=== PATIENT | female | born 1945 | race Caucasian/White ===

== ENCOUNTER → 2016-06-13 | Outpatient (CLI) | payer MEDICARE, OTHER ==
[~2016-06-13] MED LIST: Barium Sulfate 60% w/v Susp 355 ML Bottle PO ONE; Barium Sulfate 98% Powder for Susp 340 GM Bottle PO ONE; Citric Acid/Simethicone/Sodium Bicarbonate Granules 4 GM Packet PO ONE
== END ==
LOC: VM.DI 09:19
PROVIDERS: ATTEND Family Medicine
DX: R10.13 Epigastric pain (principal); K27.9 Peptic ulcer, site unspecified, unspecified as acute or chronic, without hemorrhage or perforation; K44.9 Diaphragmatic hernia without obstruction or gangrene; K21.9 Gastro-esophageal reflux disease without esophagitis; K22.2 Esophageal obstruction
CPT/HCPCS: 74240